=== PATIENT | female | born 1975 | race Caucasian/White ===

== ENCOUNTER 2018-05-25 23:33 | Emergency (ER) | payer MEDICARE ==
[~2018-05-25] VITALS: Ht 167.6 cm; Wt 105.0 kg
--- NOTE | 2018-05-25 23:33 | NUR ---
PT HERE BY EMS FROM HOME. EMS STATES ON ARRIVAL PT HAVING FULL BODY SHAKING BUT ABLE TO TALK. NO ORAL TRAUMA, NO INCONTINENCE. ON ARRIVAL PT IS AOX4, NO S/S OF BEING POSTDICTAL. ASSESSMENT DONE. MD AT BEDSIDE.
[2018-05-25] MEDS ORDERED: [UNRECOGNIZED DRUG - REMARK] (23:52)
[2018-05-25] MEDS ORDERED: LORA-445 PO (23:53)
[2018-05-25] MEDS ORDERED: ZONI25CA2 PO (23:55)
[2018-05-26] MEDS ORDERED: SODIUM CHLORIDE 0.9% 1,000ML IVBOLUS ONE
[2018-05-26 00:20] LABS: MEAN CORPUSCULAR HEMOGLOBIN 30.5 pg (27.0-34.8); MEAN CORPUSCULAR VOLUME 89.5 fL (80-100); MEAN PLATELET VOLUME 8.3 fL (7.4-10.4); PLATELET COUNT 307 x10^3/uL (130-400); RED BLOOD COUNT 4.49 x10^6/uL (3.82-5.3); RED CELL DISTRIBUTION WIDTH 12.9 % (9.6-15.2)
[2018-05-26 00:31] LABS: ALANINE AMINOTRANSFERASE 16 U/L (12-78); ALBUMIN 3.2 g/dL (3.4-5.0); ANION GAP 9 mmol/L (5-15); CHLORIDE 115 mmol/L (98-107); CREATININE 1.14 mg/dL (0.55-1.02)
[2018-05-26 00:33] LABS: ALKALINE PHOSPHATASE 86 U/L (45-117); BILIRUBIN,TOTAL 0.3 mg/dL (0.2-1.0); TOTAL PROTEIN 6.6 g/dL (6.4-8.2)
[2018-05-26 01:03] LABS: BASOPHILS # (AUTO) 0.05 x10^3/uL (0-0.1); BASOPHILS % (AUTO) 0 % (0-1); EOSINOPHILS % (AUTO) 1 % (1-7); LYMPHOCYTES # (AUTO) 1.39 x10^3/uL (1-3.4); LYMPHOCYTES % (AUTO) 7 % (22-44); MD SCAN; MONOCYTES # (AUTO) 0.71 x10^3/uL (0.2-0.8); MONOCYTES % (AUTO) 3 % (2-9); NEUTROPHILS # (AUTO) 18.76 x10^3/uL (1.8-6.8); NEUTROPHILS % (AUTO) 89 % (42-75)
--- NOTE | 2018-05-26 01:10 | NUR ---
PT INFORMED URINE SAMPLE NEEDED. STATES UNABLE TO PROVIDE ONE AT THIS TIME. FAMILY MEMBERS AT BEDSIDE.
[2018-05-26 01:57] LABS: MICROSCOPIC INDICATED
[2018-05-26 02:05] LABS: CULTURE INDICATED? YES
--- NOTE | 2018-05-26 03:28 | NUR ---
Break RN: laborer chemical processing at bedside for 2nd lactic.
--- NOTE | 2018-05-26 04:24 | NUR ---
re-evaluation done. patient discharged with instruction to follow up to Neurologist. verbalized understanding.
[2018-05-26 04:25] VITALS: BP 91/59
== END 2018-05-26 04:29 | disposition home or self-care (01) ==
LOC: ED 05-26 04:15
DX: G40.909 Epilepsy, unspecified, not intractable, without status epilepticus (principal); R00.0 Tachycardia, unspecified; F17.200 Nicotine dependence, unspecified, uncomplicated; E86.0 Dehydration
CPT/HCPCS: 36415; 71045; 80053; 80307; 81001; 82140; 83605; 85025; 85379; 87086; 93005; 96360; 99284; J7030